=== PATIENT | female | born 1955 | race Caucasian/White ===

== ENCOUNTER 2023-03-03 06:27 | Day surgery (SDC) | payer OTHER, MEDICARE, MEDICAID ==
[~2023-03-03] VITALS: Ht 172.7 cm; Wt 71.8 kg
[2023-03-03] MEDS ORDERED: RINGERS SOLUTION,LACTATED 1,000 ML IV ONE ×2 (06:30→07:43)
[2023-03-03 07:56] LABS: BASOPHILS % (AUTO) 0.5 % (0.0-2.0); EOSINOPHILS % (AUTO) 1.9 % (1.0-6.0); HEMATOCRIT 39.2 % (36-46); HEMOGLOBIN 12.9 g/dL (12.0-16.0); LYMPHOCYTES # (AUTO) 2.7 K/uL (1.0-4.8); LYMPHOCYTES % (AUTO) 41.5 % (22.0-44.0); MEAN CORPUSCULAR HEMOGLOBIN 32.4 pg (26.0-34.0); MEAN CORPUSCULAR HGB CONC 32.9 G/dL (31.0-37.0); MEAN CORPUSCULAR VOLUME 98 fL (80-100); MONOCYTES # (AUTO) 0.9 K/uL (0.1-1.0); MONOCYTES % (AUTO) 13.7 % (2.0-9.0); NEUTROPHILS # (AUTO) 2.8 K/uL (1.8-7.7); NEUTROPHILS % (AUTO) 42.4 % (40.0-70.0); PLATELET COUNT (AUTO) 214 K/uL (150-450); RED BLOOD CELL COUNT(AUTO) 3.99 MIL/uL (4.00-5.20)
[2023-03-03] MEDS ORDERED: CLINDAMYCIN 600 MG/D5% WATER 50 ML IV ONE (08:00)
[2023-03-03 08:08] LABS: PROTHROMBIN TIME 10.8 SEC (9.4-11.6)
[2023-03-03 08:09] LABS: CALCIUM, TOTAL 9.7 mg/dL (8.8-10.5); CREATININE 1.13 mg/dL (0.60-1.30); POTASSIUM 5.5 mmol/L (3.5-5.1)
[2023-03-03] MEDS ORDERED: DEUT6TAB PO (08:10)
[2023-03-03] MEDS ORDERED: CARB-38 PO (08:32)
[2023-03-03] MEDS ORDERED: CALC-1085 PO (08:32)
[2023-03-03] MEDS ORDERED: BISA10SU11 PR (08:52)
[2023-03-03] MEDS ORDERED: CYAN500T56 PO (08:52)
[2023-03-03] MEDS ORDERED: FOLI-130 PO (08:52)
[2023-03-03] MEDS ORDERED: DULO-114 PO (08:52)
[2023-03-03] MEDS ORDERED: APIX5TAB PO (08:52)
[2023-03-03] MEDS ORDERED: MELA3TAB89 PO (08:52)
[2023-03-03] MEDS ORDERED: RALO60 PO (08:52)
[2023-03-03] MEDS ORDERED: LINA145C PO (08:52)
[2023-03-03] MEDS ORDERED: QUET25TA PO (08:52)
[2023-03-03] MEDS ORDERED: DOCU-385 PO (08:52)
[2023-03-03] MEDS ORDERED: MULT-413 PO (08:52)
[2023-03-03] MEDS ORDERED: FAMO20 PO (08:52)
[2023-03-03] MEDS ORDERED: METO25 PO (08:52)
[2023-03-03] MEDS ORDERED: CYAN100T45 PO (08:52)
[2023-03-03] MEDS ORDERED: ACET-2247 PO (08:55)
[2023-03-03] MEDS ORDERED: MAGN-169 PO (08:55)
[2023-03-03] MEDS ORDERED: ONDA-104 PO (08:55)
[2023-03-03] MEDS ORDERED: CARB-107 PO (08:57)
[2023-03-03] MEDS ORDERED: BUPIVACAINE HCL/PF 0.25% 30 ML VIAL ONE (10:19)
[2023-03-03] MEDS ORDERED: BUPIVACAINE 0.25%/EPI 1:200,000/PF 10 ML VIAL ONE (10:21)
[2023-03-03] MEDS ORDERED: METOPROLOL TARTRATE 5 MG/5 ML VIAL IVP ONE (12:00)
[2023-03-03] MEDS ORDERED: DEXAMETHASONE SOD PHOS 4 MG/ML VIAL IVP ONE (12:00)
[2023-03-03] MEDS ORDERED: LIDOCAINE/PF 2% 5 ML VIAL IM ONE (12:00)
[2023-03-03] MEDS ORDERED: SUGAMMADEX SODIUM 200 MG/2 ML VIAL IVP ONE (12:00)
[2023-03-03] MEDS ORDERED: ROCURONIUM BROMIDE 10 MG/ML 5 ML VIAL IVP ONE (12:00)
[2023-03-03] MEDS ORDERED: FentaNYL CITRATE PF 100 MCG/2 ML VIAL IVP ONE (12:00)
[2023-03-03] MEDS ORDERED: 0.9% SODIUM CHLORIDE 10 ML VIAL IVP ONE (12:00)
[2023-03-03] MEDS ORDERED: ONDANSETRON HCL 4 MG/2 ML VIAL IVP ONE (12:00)
== END 2023-03-03 11:55 | disposition home or self-care (01) ==
LOC: SURGERY 06:27
PROVIDERS: ATTEND Dentist General Practice
DX: K05.30 Chronic periodontitis, unspecified (principal); K02.9 Dental caries, unspecified; K03.6 Deposits [accretions] on teeth; Z79.01 Long term (current) use of anticoagulants; Z79.899 Other long term (current) drug therapy; F20.9 Schizophrenia, unspecified; G80.9 Cerebral palsy, unspecified; G20 Parkinson's disease; Z88.1 Allergy status to other antibiotic agents; I10 Essential (primary) hypertension; I48.91 Unspecified atrial fibrillation; Z98.890 Other specified postprocedural states
CPT/HCPCS: 41899; 71045; 80048; 85025; 85610; 85730; 36415; 93005; J3490 ×6; J1100; J3010; J2405; Q9967; J7120